=== PATIENT | female | born 1990 | race Caucasian/White ===

== ENCOUNTER 2018-11-02 20:32 | Emergency (ER) | payer BC ==
[~2018-11-02] VITALS: Ht 165.1 cm; Wt 61.2 kg
[~2018-11-02 20:32] MED LIST: Hair, Skin & N1 EACH PO; Slow Release I160 MG PO; TUMS300 MG PO; ZYRTEC10 M1 PO
[2018-11-02] MEDS ORDERED: EPIPEN 2-P0.3 MG/0.3 IM (21:51)
== END 2018-11-02 23:07 | disposition home or self-care (01) ==
LOC: ER 20:32
DX: T78.2XXA Anaphylactic shock, unspecified, initial encounter (principal); L50.9 Urticaria, unspecified; Z88.0 Allergy status to penicillin; Z88.8 Allergy status to other drugs, medicaments and biological substances
CPT/HCPCS: 96361; 96374; 96375; 99284-25; J0171; J1200; J2920; J7030

== ENCOUNTER → 2018-11-04 | Outpatient (CLI) | payer BC ==
[~2018-11-04] MED LIST changes: +EPIPEN 2-P0.3 MG/0.3 IM
[2018-11-04 13:41] LABS: Adenovirus F 40/41 Not Detected (NOT DETECT); Astrovirus Not Detected (NOT DETECT); Campylobacter Sp Not Detected (NOT DETECT); Cryptosporidium Not Detected (NOT DETECT); Cyclospora Cayetanensis Not Detected (NOT DETECT); E. Coli O157 Not Detected (NOT DETECT); Entamoeba Histolytica Not Detected (NOT DETECT); Enteroaggregative E. coli-EAEC Not Detected (NOT DETECT); Enteropathogenic E. coli-EPEC Not Detected (NOT DETECT); Enterotoxigenic E. coli-ETEC Not Detected (NOT DETECT); Giardia Lamblia Not Detected (NOT DETECT); Norovirus GI/GII Not Detected (NOT DETECT); Plesiomonas Shigelloides Not Detected (NOT DETECT); Rotavirus A Not Detected (NOT DETECT); Salmonella Sp Not Detected (NOT DETECT); Sapovirus Not Detected (NOT DETECT); Shiga Toxin-prod E. coli-STEC Not Detected (NOT DETECT); Shigella/Enteroin E. coli-EIEC Not Detected (NOT DETECT); Vibrio Cholerae Not Detected (NOT DETECT); Vibrio Sp Not Detected (NOT DETECT); Yersinia Enterocolitica Not Detected (NOT DETECT)
== END | disposition home or self-care (01) ==
LOC: LAB 10:22 → LAB SHORT 10:22
PROVIDERS: Family Medicine
DX: R19.7 Diarrhea, unspecified (principal); R55 Syncope and collapse
CPT/HCPCS: 87507

== ENCOUNTER → 2018-11-15 | Outpatient (CLI) | payer BC ==
[2018-11-21 13:05] LABS: 5-HIAA, URINE 5.5 mg/L (Undefined)
== END | disposition home or self-care (01) ==
LOC: LAB 11:34 → LAB SHORT 11:34
PROVIDERS: Internal Medicine Gastroenterology
DX: R10.9 Unspecified abdominal pain (principal); R19.7 Diarrhea, unspecified
CPT/HCPCS: 81050; 83497

== ENCOUNTER → 2019-03-15 | Outpatient (CLI) | payer BC ==
[2019-03-17 15:06] LABS: HPV 16 Negative (Negative); HPV 18 Negative (Negative); HPV OTHER HR TYPES Negative (Negative)
== END | disposition home or self-care (01) ==
LOC: LAB 15:30 → LAB SHORT 15:30
PROVIDERS: Obstetrics & Gynecology
DX: Z34.80 Encounter for supervision of other normal pregnancy, unspecified trimester (principal)
CPT/HCPCS: 87624; G0123

== ENCOUNTER 2019-03-30 13:42 | Emergency (ER) | payer OTHER, BC ==
[~2019-03-30] VITALS: Ht 165.1 cm; Wt 64.0 kg
[2019-03-30 14:43] LABS: Source, Urine Clean Catch
[2019-03-30 14:47] LABS: Appearance, Urine Clear (Clear); Bilirubin, Urine Neg (Neg); Blood, Urine Neg (Neg); Color, Urine Yellow (P-Yellow); Glucose Qualitative, Urine Neg (Neg); Ketones, Urine Neg (Neg); Leukocyte Esterase, Urine Neg (Neg); Nitrite, Urine Neg (Neg); Protein, Urine Neg (Neg); Specific Gravity, Urine 1.005 (1.003-1.022); Urobilinogen, Urine NORM (Normal)
[2019-03-30] MEDS ORDERED: ONDA4ODT (17:10)
== END 2019-03-30 15:08 | disposition home or self-care (01) ==
LOC: ER 13:42
PROVIDERS: Physician Assistant
DX: O26.891 Other specified pregnancy related conditions, first trimester (principal); R10.9 Unspecified abdominal pain; M54.2 Cervicalgia; Z3A.14 14 weeks gestation of pregnancy; Z88.1 Allergy status to other antibiotic agents; Z88.8 Allergy status to other drugs, medicaments and biological substances; Z79.899 Other long term (current) drug therapy; V89.2XXA Person injured in unspecified motor-vehicle accident, traffic, initial encounter
CPT/HCPCS: 76815; 81003; 99284-25

== ENCOUNTER → 2019-08-30 | Outpatient (CLI) | payer BC ==
[~2019-08-30] MED LIST changes: +ONDA4ODT
== END | disposition home or self-care (01) ==
LOC: LAB SHORT 09:45 → LAB 09:45
DX: Z34.83 Encounter for supervision of other normal pregnancy, third trimester (principal)
CPT/HCPCS: 87081; 87653

== ENCOUNTER 2019-09-19 06:53 | Inpatient (IN) | payer BC ==
[~2019-09-19] VITALS: Ht 165.1 cm; Wt 75.9 kg
[2019-09-19] MEDS ORDERED: ZYRTEC10 M1 PO (07:22)
[2019-09-19 07:44] LABS: BASOPHILS ABSOLUTE AUTO 0.04 K/mm3 (0.00-0.23); BASOPHILS PERCENT AUTO 1 % (0-2); EOSINOPHILS ABSOLUTE AUTO 0.21 K/mm3 (0.00-0.68); EOSINOPHILS PERCENT AUTO 4 % (0-6); Hematocrit 35.5 % (33.0-51.0); Hemoglobin 11.6 g/dL (11.5-16.0); IMMATURE GRAN ABSOLUTE AUTO 0.04 K/mm3 (0.00-0.10); IMMATURE GRAN PERCENT AUTO 1 % (0-1); LYMPHOCYTES ABSOLUTE AUTO 1.65 K/mm3 (0.84-5.20); LYMPHOCYTES PERCENT AUTO 31 % (21-46); MONOCYTES ABSOLUTE AUTO 0.44 K/mm3 (0.16-1.47); MONOCYTES PERCENT AUTO 8 % (4-13); Mean Corpuscular HGB 31.9 pg (26.0-34.0); Mean Corpuscular HGB Conc 32.7 g/dL (31.5-36.5); Mean Corpuscular Volume 98 fL (80-100); Mean Platelet Volume 12.3 fL (9.1-12.4); NEUTROPHILS ABSOLUTE AUTO 2.95 K/mm3 (1.96-9.15); NEUTROPHILS PERCENT AUTO 55 % (41-73); Platelet Count 132 K/mm3 (150-400); RDW Coefficient Variation 14.3 % (11.7-14.2); RDW Standard Deviation 50.5 fL (35.1-46.3); Red Blood Cell Count 3.64 M/mm3 (3.80-5.20); White Blood Cell Count 5.33 K/mm3 (4.00-11.30)
--- NOTE | 2019-09-19 16:36 | NUR ---
RN ROUNDED TO HELP W/ . EXPERIENCED MOM. NB FUSSY AT BREAST AND VOMITTED AMNIOTIC FLUID. WOULD NOT LATCH. RN EXPLAINED HE PROBABLY HAS MORE FLUID IN HIS STOMACH THAT HE NEEDS TO WORK OUT. WILL ROUND AGAIN IN THE MORNING. INSTRUCT/REVIEWED BOOKLET AND BROCHURE ON WHAT TO EXPECT DURING THE FIRST WEEK W/ AND CHANGES IN NB. PT VERBAIZED UNDERSTANDING AND DENIES ANY FURTHER QUESTIONS OR CONCERNS.
[2019-09-20 05:16] LABS: Hematocrit 33.9 % (33.0-51.0); Hemoglobin 10.8 g/dL (11.5-16.0); Mean Corpuscular HGB 31.7 pg (26.0-34.0); Mean Corpuscular HGB Conc 31.9 g/dL (31.5-36.5); Mean Corpuscular Volume 99 fL (80-100); Mean Platelet Volume 12.2 fL (9.1-12.4); Platelet Count 119 K/mm3 (150-400); RDW Coefficient Variation 14.4 % (11.7-14.2); RDW Standard Deviation 52.3 fL (35.1-46.3); Red Blood Cell Count 3.41 M/mm3 (3.80-5.20); White Blood Cell Count 7.65 K/mm3 (4.00-11.30)
[2019-09-20 07:08] LABS: HIV SCREEN 4TH GENERATION WRFX Non Reactive (Non Reactive)
--- NOTE | 2019-09-20 09:37 | NUR ---
RN ROUNDED TO HELP W/ . NB LATCHED BETTER TODAY THAN YESTERDAY. LATCH IS NARROW, TALKED WITH MOM ABOUT APPLYING A SMALL AMOUNT OF PRESSURE TO TO THE CHIN TO HELP WIDEN LATCH. WHEN ASSESSING SUCK NB HAS BACK OF TONGUE RAISED UP, RN INTRUCT/DEMO WITH PT AND SO HOW TO USE ORAL EXERCISES TO HELP BROP BACK OF TONGUE. PT AND SO VERBALIZED UNDERSTANDING AND DENY ANY FURTHER QUESTIONS OR CONCERNS.
[2019-09-20] MEDS ORDERED: IBUP800 PO (10:47)
--- NOTE | 2019-09-20 12:35 | NUR ---
DSICHARGE INSTRUCTIONS GIVEN TO AND REVIEWED WITH PT. PT REPORTS NO FURTHER QUESTIONS RO CONCERNS AT THIS TIME. [facility] APPOINTMENT MADE AND BANDS MATCHED WITH .
== END 2019-09-20 13:10 | disposition home or self-care (01) | DRG 807 ==
LOC: BC 06:53
PROVIDERS: ADMIT Obstetrics & Gynecology
PROC: 10E0XZZ Delivery of Products of Conception, External Approach (ICD-10-PCS; principal; 2019-09-19)
PROC: 0KQM0ZZ Repair Perineum Muscle, Open Approach (ICD-10-PCS; 2019-09-19)
PROC: 10907ZC Drainage of Amniotic Fluid, Therapeutic from Products of Conception, Via Natural or Artificial Opening (ICD-10-PCS; 2019-09-19)
PROC: 3E0R3BZ Introduction of Anesthetic Agent into Spinal Canal, Percutaneous Approach (ICD-10-PCS; 2019-09-19)
DX: O70.1 Second degree perineal laceration during delivery (principal); Z37.0 Single live birth; Z3A.39 39 weeks gestation of pregnancy
CPT/HCPCS: 36415; 51702; 85025; 85027; 86850; 86900; 86901; 87389; J1885; J2001; J2210; J2590; J3010; J7120

== ENCOUNTER → 2020-03-27 | Outpatient (CLI) | payer BC ==
[~2020-03-27] MED LIST changes: +IBUP800 PO
[2020-03-28 15:10] LABS: Candida species (DNA Probe) Negative (NEGATIVE); G. vaginalis (DNA Probe) Negative (NEGATIVE); T. vaginalis (DNA Probe) Negative (NEGATIVE)
[2020-03-30 05:10] LABS: CHLAMYDIA TRACHOMATIS, NAA Negative (Negative); NEISSERIA GONORRHOEAE, NAA Negative (Negative)
== END | disposition home or self-care (01) ==
LOC: LAB 16:32 → LAB SHORT 16:32
PROVIDERS: Advanced Practice Midwife
DX: Z11.3 Encounter for screening for infections with a predominantly sexual mode of transmission (principal); N76.0 Acute vaginitis
CPT/HCPCS: 87480; 87491; 87510; 87591; 87660

== ENCOUNTER 2020-07-11 11:00 | Day surgery (SDC) | payer BC ==
[~2020-07-11] VITALS: Ht 165.1 cm; Wt 60.0 kg
[~2020-07-11 11:00] MED LIST changes: +METO10 PO
== END 2020-07-11 12:50 | disposition home or self-care (01) ==
LOC: ORSCSDS 11:00
PROVIDERS: Internal Medicine Gastroenterology
PROC: 0DBN8ZX Excision of Sigmoid Colon, Via Natural or Artificial Opening Endoscopic, Diagnostic (ICD-10-PCS; principal; 2020-07-11 12:15)
PROC: 0DBE8ZX Excision of Large Intestine, Via Natural or Artificial Opening Endoscopic, Diagnostic (ICD-10-PCS; principal; 2020-07-11 12:15)
PROC: 0DB98ZX Excision of Duodenum, Via Natural or Artificial Opening Endoscopic, Diagnostic (ICD-10-PCS; principal; 2020-07-11 12:15)
DX: R19.4 Change in bowel habit (principal); R14.0 Abdominal distension (gaseous); D12.5 Benign neoplasm of sigmoid colon; K64.8 Other hemorrhoids; Z79.899 Other long term (current) drug therapy
CPT/HCPCS: 88305; 88342; J2250; J2704; J7120

== ENCOUNTER → 2020-08-24 | Outpatient (CLI) | payer BC ==
[2020-08-28 17:12] LABS: HPV 16 Negative (Negative); HPV 18 Negative (Negative); HPV OTHER HR TYPES Negative (Negative)
== END | disposition home or self-care (01) ==
LOC: LAB 13:32 → LAB SHORT 13:32
PROVIDERS: Obstetrics & Gynecology
DX: Z01.419 Encounter for gynecological examination (general) (routine) without abnormal findings (principal); L29.3 Anogenital pruritus, unspecified
CPT/HCPCS: 87070; 87147; 87205; 87624; G0123

== ENCOUNTER → 2024-06-02 | Outpatient (CLI) | payer BC ==
[2024-06-07 13:11] LABS: HPV HIGH RISK BY TMA Not Detected; HPV SOURCE Vaginal
== END ==
LOC: LAB SHORT 13:24 → LAB 13:24
PROVIDERS: Obstetrics & Gynecology
DX: Z01.419 Encounter for gynecological examination (general) (routine) without abnormal findings (principal)
CPT/HCPCS: 87624; G0123